=== PATIENT | male | born 1935 | race Caucasian/White ===

== ENCOUNTER → 2016-12-17 | Outpatient (CLI) | payer OTHER ==
[~2016-12-17] MED LIST: ACTOS 45 MG45 M1 PO; ALPHAGAN P10 ML OP; ASA5UEC PO; B12INJ IM; CARDURA8 MG PO; CELEXA20 MG PO; COMBIGAN EYE DR10 ML; COMBIGAN EYE DR10 ML PO; FLOMAX PO; GEMFIBROZIL 60600 MG PO; GLUCOTROL10 MG PO; LEVEMIR SUBQ; LIPITOR40 MG PO; LUMIGAN2.5 M1 OP; METFORMIN 500500 MG PO; METFORMIN HCL500 MG PO; NOVOLOG100 UNIT/1 SUBQ; PEG3350510 GM PO; TIMOLOL MA0.5 %/5 M2; TYLENOL325 MG PO; VESICARE10 M1 PO; XALATAN2.5 ML OP; [UNRECOGNIZED DRUG - OTHER]
== END ==
LOC: ULTRA 14:16
DX: I65.21 Occlusion and stenosis of right carotid artery (principal)

== ENCOUNTER → 2019-10-31 | Outpatient (CLI) | payer OTHER | LOC: SJCVC 14:08 | PROVIDERS: ATTEND Internal Medicine | DX: I44.0 Atrioventricular block, first degree (principal); I45.10 Unspecified right bundle-branch block; R94.31 Abnormal electrocardiogram [ECG] [EKG]; I48.0 Paroxysmal atrial fibrillation; E78.5 Hyperlipidemia, unspecified; I95.1 Orthostatic hypotension; R53.1 Weakness; Z79.899 Other long term (current) drug therapy; Z79.84 Long term (current) use of oral hypoglycemic drugs; Z79.4 Long term (current) use of insulin; Z82.49 Family history of ischemic heart disease and other diseases of the circulatory system; Z87.891 Personal history of nicotine dependence ==

== ENCOUNTER → 2019-11-08 | Outpatient (CLI) | payer OTHER | LOC: SJCVCIMAG 08:55 | DX: I65.23 Occlusion and stenosis of bilateral carotid arteries (principal); I73.9 Peripheral vascular disease, unspecified; I48.0 Paroxysmal atrial fibrillation; Z87.891 Personal history of nicotine dependence ==

== ENCOUNTER → 2021-04-09 | Outpatient (CLI) | payer OTHER ==
[~2021-04-09] MED LIST changes: +ATORVASTATIN CA20 MG PO; +CELEXA 20 MG TA20 MG PO; +COLACE100 MG PO; +ELIQUIS5 MG PO; +FINASTERIDE5 MG PO; +FLOMAX0.4 MG PO; +METFORMIN HCL1000 MG PO; +MIRALAX17 GM PO; +PROAIR HFA8.5 GM INH; +TRESIBA FL100 UNIT/1 SUBQ; +VITAMIN D325 MC3 PO
[2021-04-09 13:29] LABS: URINE BILIRUBIN NEGATIVE (Negative); URINE BLOOD NEGATIVE (Negative); URINE CLARITY CLEAR; URINE COLOR YELLOW; URINE GLUCOSE-RANDOM* NEGATIVE (Negative); URINE KETONES TRACE (Negative); URINE LEUKOCYTES-REFLEX TRACE (Negative); URINE NITRITE-REFLEX NEGATIVE (Negative); URINE PROTEIN (DIPSTICK) NEGATIVE (Negative); URINE SPECIFIC GRAVITY >= 1.030 (1.005-1.035); URINE UROBILINOGEN 0.2 E.U./dl (0.2-1.0)
[2021-04-09 13:30] LABS: APTT 28.2 Seconds (24.5-32.8); INR 0.99; PROTIME 10.8 Seconds (10.5-12.1)
== END ==
LOC: PAC 10:44
PROVIDERS: ATTEND Surgery Vascular Surgery
DX: Z01.818 Encounter for other preprocedural examination (principal); E11.9 Type 2 diabetes mellitus without complications; I49.9 Cardiac arrhythmia, unspecified

== ENCOUNTER → 2021-04-12 | Outpatient (CLI) | payer OTHER ==
[~2021-04-12] MED LIST changes: -FLOMAX0.4 MG PO
== END ==
LOC: LAB 09:10
PROVIDERS: ATTEND Student in an Organized Health Care Education/Training Program
DX: Z01.812 Encounter for preprocedural laboratory examination (principal); Z20.822 Contact with and (suspected) exposure to COVID-19

== ENCOUNTER 2021-04-15 06:48 | Inpatient (IN) | payer OTHER ==
[2021-04-15] VITALS (26 sets, daily range): BP systolic 73–133; BP diastolic 28–72
[~2021-04-15] VITALS: Ht 177.8 cm; Wt 97.3 kg
--- NOTE | 2021-04-15 14:11 | NUR ---
PT CAME FROM PACU TO ICU AT 1300. PT ALERT AND ORIENTED X3 ON ARRIVAL TO ICU. PT WAS ACCOMPANIED BY HOME HEALTH MANAGER AND PACU TECH. PT WAS CONNECTED TO ICU MONITORS. PT WAS ON NEOSYNEPHRINE GTT AT 20 MCG/MIN AND NS AT 100ML/HR ON ARRIVAL. PT HAS RIGHT RADIAL ART LINE. PT HAS MCGREGOR CATHETER IN PLACE. CONTINUE TO MONITOR PATIENT AT THIS MOMENT.
--- NOTE | 2021-04-15 15:49 | O ---
[facility] [place] [address] OPERATIVE REPORT Name: WYATT LONDONO Room #: 245-P ADM IN M.R.#: [id number] Admission: 04/15/21 Attend Phys: Wyatt Johnson MD Discharge: Date of : 39 Report #: [id number] THIS REPORT FOR: cc: Reji Hawkins James A. DO Forman, John M. MD ~ DATE OF SERVICE: 04/15/2021 PREOPERATIVE DIAGNOSIS: Right carotid artery stenosis. POSTOPERATIVE DIAGNOSIS: Right carotid artery stenosis. OPERATION: Right carotid endarterectomy with patch closure. SURGEON: Wyatt Johnson MD ELEMENTARY SCHOOL REGISTRAR: KALINA Causey. ANESTHESIA: General. INDICATIONS: The patient is an 86-year-old with high-grade right carotid artery stenosis. Left side has been previously treated with carotid endarterectomy. The patient presents with transient ischemic attack. FINDINGS AND TECHNIQUE: After general anesthesia was established, an oblique right neck incision was made. Common facial vein was divided. Common internal and external carotid artery and the superior thyroid artery were identified and controlled. 10,000 units of heparin were given. Continuous electroencephalographic monitoring was performed during the operation. When the carotid vessels were occluded, no EEG changes were noted. The carotid arteriotomy was made. The endarterectomy was performed without creating a distal flap. Neointima was inspected and all loose debris was removed. Tacking sutures were placed at the transition zone. When the endarterectomy was deemed to be satisfactory, the arteriotomy was closed with running Prolene and a thin walled pericardial patch. The carotid vessels were backbled and the artery was irrigated with heparinized saline prior to closure. Flow was established first through the external and then the internal carotid artery. Protamine was given to reverse the heparin. Hemostasis was ascertained. When hemostasis was satisfactory, the wound was irrigated with antibiotic solution and a Colleen drain was brought out through the bottom pole of the [facility] [address] [place] [address] OPERATIVE REPORT Name: WYATT LONDONO GUILHERME Room #: 245-P [facility]#: [id number] Admission: 04/15/21 Attend Phys: Wyatt Johnson MD Discharge: Date of : 37 Report #: [id number] incision. The wound was closed in layers. The patient was taken to the recovery area in good condition where his neurologic progress was monitored. All counts were reported as correct. <ELECTRONICALLY SIGNED> By: Wyatt Johnson MD 04/15/21 1549 0953 1008 Wyatt Johnson MD /nt
[2021-04-16] VITALS (14 sets, daily range): BP systolic 86–112; BP diastolic 32–45
--- NOTE | 2021-04-16 02:17 | NUR ---
ASSUMED CARE OF PATIENT AT 1900. PATIENT REMAINS ON LAUREEN FOR BLOOD PRESSURE SUPPORT. INSULIN GTT TITRATED PER PROTOCOL, TURNED OFF WHEN BLOOD SUGAR LOW. PAIN MANAGED WELL WITH PO MEDS. PROGRESSING SLOWLY TOWARDS POC GOALS.
[2021-04-16 04:48] LABS: CALCIUM 7.7 mg/dL (8.5-10.1); CREATININE 1.2 mg/dL (0.7-1.3); POTASSIUM 4.1 mmol/L (3.5-5.1)
[2021-04-16 05:00] LABS: HEMATOCRIT 29.8 % (42.0-52.0); MCH 28.8 pg (26.0-34.0); MCHC 33.6 g/dL (28.0-37.0); MCV 85.8 fL (80.0-100.0); RBC 3.47 mil/uL (4.50-6.00); RDW 14.7 % (10.5-14.5)
--- NOTE | 2021-04-16 08:35 | NUR ---
0800-PT DELIGHTFUL. STATES I JUST FEEL ROTTEN. FINALLY SAID PAIN ~8/10. 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 DTR IS W AT PRESENT.--VW 0830- & THALIA IN.--VW
--- NOTE | 2021-04-16 12:35 | NUR ---
Case opened to follow for dc planning. Pt remains in ICU pod#1 s/p CEA with low hr/low blood pressure. Pt resting this morning during rounds and pt's is on her way here to visit. Cm completed assessment with pt's dtr Carlotta via phone. She indicates that the pt and spouse live together in a single story home. They have 2 steps into the home thru the garage. The pt uses a rwalker at home and has had some falls recently. He does have HH nursing and therapy services prior to admission. Pt's dtr is uncertain of which agency it is but possibley [facility] liason checking to see if he is active with them. The pt's does the house keeping and IADL's in the home but is struggling with a knee injury that needs surgery. Pt's dtr is available to help with errands and shopping as needed and they do have a 22yr old grand son living in the home for emergencies. Staff aware that pt and family are struggling with grief and loss of their son who one year ago today unexpectedly. PT eval is pending. Dc plan at this time is to resume HH. Will follow along.
[2021-04-17] VITALS (10 sets, daily range): BP systolic 99–140; BP diastolic 40–76
--- NOTE | 2021-04-17 03:52 | NUR ---
Pt has attempted to pull out RAC and right radial a-line x3 and constantly picking at surgical dressing, macdonald, and monitor wires. Unable to redirect pt. Karthikeyan Ware NP notified and bilateral soft wrist restraints applied for pt safety. Pt remains oriented to self only. Pupils GRACIELA, 4, brisk. Monitor Pt moves all extremities equally. Monitor SR with BBB.
[2021-04-17 05:44] LABS: ALBUMIN 2.6 g/dL (3.4-5.0); CALCIUM 7.9 mg/dL (8.5-10.1); CREATININE 0.8 mg/dL (0.7-1.3); PHOSPHORUS 2.6 mg/dL (2.5-4.9); POTASSIUM 4.2 mmol/L (3.5-5.1)
--- NOTE | 2021-04-17 06:46 | NUR ---
Slow progress toward goals. Pt remains extremely confused and will not reorient. Pt placed in soft wrist restraints bilaterally to protect a-line, IVs and macdonald. Neosynephrine gtt off at 0400, SBP remains > 100. Urine output was 2450 cc this shift.
--- NOTE | 2021-04-17 07:13 | EKG ---
[address] [place] [address] ELECTROCARDIOGRAM REPORT Name: WYATT LONDONO Room #: 245-P ADM IN M.R.#: [id number] Admission: 04/15/21 Attend Phys: Wyatt Johnson MD Discharge: Date of : 37 Report #: [id number] [facility] Test Date: 2021-04-16 Test Time: 15:24:55 Pat Name: WYATT LONDONO Department: Room: 245 P Gender: M Manager Of It: FSCHWALBE : 1935 Requested By: Gloria Stewart Order Number: [id number] MD: Tushar Manzano Measurements Intervals Pierre Part Rate: 45 P: 112 MD: 226 QRS: -84 QRSD: 168 T: -35 QT: 495 QTc: 429 Interpretive Statements Sinus bradycardia Borderline prolonged MD interval Right bundle branch block Compared to ECG 03/30/2014 10:05:36 Sinus rhythm no longer present Left-axis deviation no longer present Myocardial infarct finding no longer present Electronically Signed On 04-17-2021 7:13:40 CDT by Tushar Manzano [email or web address] <ELECTRONICALLY SIGNED> By: Tushar Manzano MD, FAC 04/17/21 0713 1524 1524 Tushar Manzano MD, [facility] /EPI
--- NOTE | 2021-04-17 08:09 | NUR ---
PT IS CONFUSED BELIEVING HE IS ON HIS WAY TO BO[place] ON [place]. PT IS IMPULSIVE BUT ALERT AND AWAKE. NEOSYNEPHRINE REMAINS OFF; HIS RIGHT A-LINE HAS READS 126/57. THE BP CUFF ON HIS LEFT ARM COORELATES READING 126/56. PT IS SLOWLY PROGRESSING TOWARD THE POC EVIDENCED BY CONFUSION. THE PT IS ON ROOM AIR SATTING 98%, W/ REGULAR RR (18), AND HR 60-70. THE RHYTHM IS SR W/ BBB AND INTERMITTENT 1 DEG. THIS RN WILL COMMUNICATE WITH DR. BHATT TO REMOVE THE A-LINE.
[2021-04-17 08:38] LABS: HEMATOCRIT 32.8 % (42.0-52.0); HEMOGLOBIN 10.7 gm/dL (14.0-18.0); MCH 28.1 pg (26.0-34.0); MCHC 32.6 g/dL (28.0-37.0); MCV 86.3 fL (80.0-100.0); RBC 3.8 mil/uL (4.50-6.00); WBC 10.1 thou/uL (4.0-11.0)
--- NOTE | 2021-04-17 14:22 | NUR ---
THIS PT REMAINS CONFUSED SUCH IS RESTRAINED. HE ATTEMPTS TO LEAVE THE HOSPITAL WHILE CONTINUOUSLY REACHING FOR HIS DEVICES. HIS IS AT THE BEDSIDE BUT HE ASKS, " WILL YOU MOVE THIS BOARD FROM MY BACK?" HE SHAKES THE BED RAIL BECAUSE HE DOES NOT WANT TO "LAY ON IT." THE SUSANA IS REMOVED; HIS SBP REMAINS ABOVE 10O THROUGHOUT THIS DAY. AND, THE MAP > 65 TOO. AN MRI IS ORDERED; HOWEVER; IT WOULD NOT BE SAFE AT THIS TIME.
--- NOTE | 2021-04-17 16:19 | NUR ---
MRI IS CANCELLED FOR THIS PT; HE HAS AN IMPLANTED MEDICAL NURSE ON THE LEFT SIDE OF THE HEART. HOSPITALIST IS AWARE, ORDERS TO CANCEL THE MRI IS RECEIVED.
[2021-04-18] VITALS (9 sets, daily range): BP systolic 86–149; BP diastolic 42–78
--- NOTE | 2021-04-18 01:05 | NUR ---
Pt voided for first time since macdonald removal at 174; pt missed urinal but appeared to void adequate amount.
--- NOTE | 2021-04-18 07:09 | NUR ---
Slowly progressing toward goals. Pt has slept well tonight; confusion much improved. Pt generally oriented to self, place and year now. Pt still very weak, needs max assist for toileting. Can shift weight in bed but requires assist for full turns. Skin remains intact, right neck incision NICHOLE dressing C/D/I. Pt has periods of decreased O2 sat when sleeping. O2 placed for HS to keep sat > 92%. Appears to be voiding without difficulty.
--- NOTE | 2021-04-18 09:55 | 2DMMODE ---
[facility] [place] [address] 2 D/M-MODE ECHOCARDIOGRAM Name: WYATT LONDONO Room #: 245-P ADM IN M.R.#: [id number] Admission: 04/15/21 Attend Phys: Wyatt Johnson MD Discharge: Date of : 39 Report #: [id number] THIS REPORT FOR: cc: Reji Hawkins James A. DO Park, Jin S. MD ~ APPROVED REPORT Study performed: 04/18/2021 08:16:17 EXAM: Comprehensive 2D, Doppler, and color-flow Echocardiogram Patient Location: ICU Room #: 245 Status: routine BSA: 2.15 HR: 44 bpm BP: 132/53 mmHg Rhythm: Sinus ophelia Other Information Study Quality: Adequate Indications Hypotensive post of endarterectomy. Elevated troponin. Echo Enhancing Agent Indication: Endocardial border delineation Agent(s) / Amount(s) Used: Optison 5 cc 2D Dimensions RVDd: 39.68 mm IVSd: 9.38 (7-11mm) LVOT Diam: 21.01 (18-24mm) LVDd: 56.47 mm PWd: 10.01 (7-11mm) Ascending Ao: 39.28 (22-36mm) LVDs: 40.35 (25-40mm) Left Atrium: 36.35 (27-40mm) Aortic Root: 34.80 mm Volumes Left Atrial Volume (Systole) Single Plane 4CH: 33.76 mL Single Plane 2CH: 53.24 mL Aortic Valve AoV Peak Arnoldo.: 1.17 m/s [facility] [address] [place] [address] 2 D/M-MODE ECHOCARDIOGRAM Name: WYATT LONDONO Room #: 245-P ADM IN M.R.#: [id number] Admission: 04/15/21 Attend Phys: Wyatt Johnson MD Discharge: Date of : 37 Report #: [id number] AO Peak Gr.: 5.50 mmHg LVOT Max P.91 mmHg LVOT Max V: 0.69 m/s TAMIE Vmax: 2.04 cm2 Mitral Valve E/A Ratio: 1.3 MV Decel. Time: 153.21 ms MV E Max Arnoldo.: 1.00 m/s MV A Arnoldo.: 0.75 m/s MV PHT: 44.43 ms IVRT: 87.66 ms Pulmonary Valve PV Peak Arnoldo.: 0.70 m/s PV Peak Gr.: 1.96 mmHg Tricuspid Valve TR Peak Arnoldo.: 2.42 m/s RAP Estimate: 5.00 mmHg TR Peak Gr.: 24.00 mmHg PA Pressure: 29.00 mmHg Left Ventricle The left ventricle is normal size. Regional wall motion abnormalities are noted. There is normal left ventricular wall thickness. Left ventricular systolic function is moderately decreased. LVEF is 40%. Moderate diastolic dysfunction is present (pseudonormal filling). Right Ventricle The right ventricle is normal size. The right ventricular systolic function is normal. Atria The left atrium size is normal. The right atrium size is normal. Aortic Valve The aortic valve is normal in structure. Trace aortic regurgitation. There is no aortic valvular stenosis. Mitral Valve The mitral valve is normal in structure. Mild mitral regurgitation. Tricuspid Valve The tricuspid valve is normal in structure. Mild tricuspid regurgitation. Estimated PAP is 29mmHg. [facility] [place] [address] 2 D/M-MODE ECHOCARDIOGRAM Name: LONDONO,JOHN GUILHERME Room #: 245-P ADM IN M.R.#: [id number] Admission: 04/15/21 Attend Phys: Wyatt Johnson MD Discharge: Date of : 39 Report #: [id number] Pulmonic Valve The pulmonary valve is normal in structure. Trace pulmonic regurgitation. Great Vessels The aortic root is normal in size. The ascending aorta is mildly dilated (3.9cm). IVC is dilated and collapses <50% with inspiration. Pericardium There is no pericardial effusion. <Conclusion> The left ventricle is normal size. There is normal left ventricular wall thickness. Left ventricular systolic function is moderately decreased. Moderate diastolic dysfunction is present (pseudonormal filling). The right ventricle is normal size. The left atrium size is normal. Trace aortic regurgitation. Mild mitral regurgitation. Mild tricuspid regurgitation. Estimated PAP is 29mmHg. <ELECTRONICALLY SIGNED> By: Aram Castano MD 04/18/21953 3 3 Aram Castano MD /INF
--- NOTE | 2021-04-18 10:08 | PATH ---
[facility] [address] [place] [address] PATHOLOGY RPT PROCEDURE Name: WYATT BUTLER Room #: 245-P ADM IN M.R.#: [id number] Admission: 04/15/21 Date of : 39 Discharge: Report #: [id number] Path Case #: [id number] LCA Accession Number: [id number] . 01 Material submitted: . carotid body - RIGHT CAROTID PLAQUE. Modifiers: right . 01 Clinical history: . CAROTID ENDARTERECTOMY RIGHT CAROTID ARTERY STENOSIS . 02 Diagnosis: Right carotid plaque, endarterectomy: - Calcified atherosclerotic plaque material. - Vessel wall with myxoid changes. (IUV:facility service manager; 04/17/2021) MBR 04/17/2021 [facility] Local . 02 Electronically signed: . Jacqueline Simpson MD, Pathologist NPI- [id number] . 01 Gross description: . The specimen is received in formalin, labeled "Wyatt Butler, right carotid plaque". Received are several segments of yellow-santos, moderately calcified plaque measuring 2.8 x 1.5 x 0.9 cm in aggregate dimensions. The specimen is submitted representatively in cassette A1, following light decalcification. (CAA; 04/16/2021) QAC/QAC 04/16/2021 1142 Local . 02 Pathologist provided ICD-10: I65.21 . 02 CPT . 628996, [id number] Specimen Comment: A courtesy copy of this report has been sent to [phone], [phone] Specimen Comment: [id number] Specimen Comment: Report sent to / DR MORTENSEN Specimen Comment: A duplicate report has been generated due to demographic updates. Performed at: [address] [id number] MD Breezy Austin MD Phone: [phone] Performed at: [address] [id number] PATHOLOGY RPT PROCEDURE Name: WYATT BUTLER Room #: 245-P [facility] IN M.R.#: [id number] Admission: 04/15/21 Date of : 39 Discharge: Report #: [id number] Path Case #: [id number] [address] [id number] MD Jacqueline Simpson MD Phone: [phone]
--- NOTE | 2021-04-18 10:18 | NUR ---
Discussed during los with the hospitalist and unit rounds. O2 2l nasal cannula. Ct scan today. [facility] consult. Possible move out of the icu when bed becomes available. Will cont following as needed.
--- NOTE | 2021-04-18 10:59 | NUR ---
RECIEVED REPORT FROM NIGHT RN AT 0930, AFTER REPORT COMPLETE, NOTIFIED OF NEW ROOM ASSIGNEMENT OF 208 IN CCU. REPORT CALLED TO CCU RNDELMA. AM MEDICATIONS GIVEN AND TRANSFERED. BELONGINGS SENT WITH PATIENT. CONTACTED VIGNESH TO NOTIFY OF ROOM CHANGE. UPDATED ON PATIENT STATUS.
--- NOTE | 2021-04-18 16:32 | NUR ---
Case discussed with the care team, CTS, pt and family. CT for r/o cva. Pt too aggitated yesterday for MRI. [facility] consulted and they can accept for acute rehab stay. Pt and family agreeable to acute rehab here vs tx to [facility]. [facility] pineda has submitted for insurance auth. Pt now on CCU. Will follow.
--- NOTE | 2021-04-18 17:04 | NUR ---
AUTHORIZATION FOR ACUTE INPATIENT REHABILITATION WAS REQUESTED TODAY 04/18/21 FOR ANTICIPATED ADMISSION ON 04/19/21. CLINICALS FAXED TO [phone]. REF #[id number].
--- NOTE | 2021-04-19 02:48 | NUR ---
PT CARE ASSUMED WITH PT IN BED RESTING.PT IS A/OX4.PT IS MAX ASSIST.ACCUCHECK ACHS.PT C/O HEADACHE AND TYLENOL GIVEN.DRESSING ON RT NECK AREA I/C/D WITH NICHOLE.WILL CONTINUE TO MONITOR PER POC
[2021-04-19 04:38] VITALS: BP 117/54
[2021-04-19 05:28] LABS: ALBUMIN 2.5 g/dL (3.4-5.0); CALCIUM 8.2 mg/dL (8.5-10.1); PHOSPHORUS 3.6 mg/dL (2.5-4.9)
[2021-04-19 07:00] VITALS: BP 103/56
--- NOTE | 2021-04-19 12:22 | NUR ---
[facility] acute rehab has a bed for the pt today and can accept if ins auth rec'd. Case discussed with the care team.
--- NOTE | 2021-04-19 14:39 | NUR ---
Assumed care of pt this AM. Pt A&O x4, on RA. Denies any chest pain. NICHOLE dressing in place to rt neck. Pt c/o sore throat, given PRN losanges. Bradycardia w/ 1AVB, BBB, & PAC on the monitor. Pt up w/ max assist. Urinal at bedside. Possible discharge to [facility] today, pending approval. Will continue to assess pt needs.
[2021-04-19] MEDS ORDERED: FLOMAX0.4 MG PO (16:53)
[2021-04-19 17:00] VITALS: BP 137/66
== END 2021-04-19 20:07 | DRG 37 ==
LOC: OR → ICU 06:48 → ADMC 06:48 → PRE 08:56 → OR 10:44 → ICU 12:50 → OR 15:14 → EDSTATUS 17:03 → 2N 04-18 10:31
PROVIDERS: Hospitalist; Nurse Practitioner Family; Physician Assistant; ADMIT Surgery Vascular Surgery; ATTEND Surgery Vascular Surgery
PROC: 03CM0ZZ Extirpation of Matter from Right External Carotid Artery, Open Approach (ICD-10-PCS; principal; 2021-04-15)
PROC: 03CK0ZZ Extirpation of Matter from Right Internal Carotid Artery, Open Approach (ICD-10-PCS; principal; 2021-04-15)
PROC: 03UH07Z Supplement Right Common Carotid Artery with Autologous Tissue Substitute, Open Approach (ICD-10-PCS; principal; 2021-04-15)
PROC: 03CH0ZZ Extirpation of Matter from Right Common Carotid Artery, Open Approach (ICD-10-PCS; principal; 2021-04-15)
DX: I65.21 Occlusion and stenosis of right carotid artery (principal); E43 Unspecified severe protein-calorie malnutrition; R77.8 Other specified abnormalities of plasma proteins; Z20.822 Contact with and (suspected) exposure to COVID-19; I95.9 Hypotension, unspecified; R41.0 Disorientation, unspecified; N40.0 Benign prostatic hyperplasia without lower urinary tract symptoms; E11.9 Type 2 diabetes mellitus without complications; I48.91 Unspecified atrial fibrillation; Z79.01 Long term (current) use of anticoagulants; E78.5 Hyperlipidemia, unspecified; I10 Essential (primary) hypertension; E66.9 Obesity, unspecified; Z68.30 Body mass index [BMI] 30.0-30.9, adult; Z92.3 Personal history of irradiation; I95.89 Other hypotension
CPT/HCPCS: 10078; 10081; 10204; 47375; 48889; 50010; 50101; 50386; 50403; 50455; 51301; 52287; 54118; 56524; 56526; 56528; 56534; 57254; 58585; 58731; 62110; 62900; 65020; 70005

== ENCOUNTER 2021-04-19 17:18 | Inpatient (IN) | payer OTHER ==
[~2021-04-19] VITALS: Ht 175.3 cm; Wt 91.8 kg
[~2021-04-19 17:18] MED LIST changes: +FLOMAX0.4 MG PO
[2021-04-19 20:00] VITALS: BP 128/61
--- NOTE | 2021-04-19 22:40 | NUR ---
PT ARRIVED TO UNIT APPROX 1999 VIA W/C FROM [facility]. PT ALERT AND ORIENTED X4, PLEASANT AND COOPERATIVE. DRESSING TO NECK C/D/I. PT SOMEWHAT FORGETFUL. URINAL AT BEDSIDE. DCD SALINE LOCK TO LEFT AC DRAINAGE AT SITE. PT TOOK HS MED WITH WATER TOLERATING WELL. PT DENIES PAIN. BED ALARM ON AND CALL LIGHT IN REACH. WILL CONTINUE TO MONITOR.
[2021-04-20 04:39] LABS: CALCIUM 8.3 mg/dL (8.5-10.1); CREATININE 0.9 mg/dL (0.7-1.3); HEMATOCRIT 33.4 % (42.0-52.0); HEMOGLOBIN 11.2 gm/dL (14.0-18.0); MCH 28.7 pg (26.0-34.0); MCHC 33.5 g/dL (28.0-37.0); MCV 85.8 fL (80.0-100.0); POTASSIUM 3.9 mmol/L (3.5-5.1); RBC 3.9 mil/uL (4.50-6.00); WBC 6.9 thou/uL (4.0-11.0)
[2021-04-20 05:21] LABS: FOLIC ACID 5.4 ng/mL (8.6-58.9)
--- NOTE | 2021-04-20 07:53 | NUR ---
ASSUMED CARE AT 0700. PATIENT IS ALERT AND ORIENTED X4. PATIENT MYERS'S , CYBER SECURITY MANAGER ARE EQUAL. LUNGS ARE CLEAR AND DEMINISHED. ABD IS SOFT WITH BSX4. PATIENT HAS NICHOLE ON HIS RIGHT NECK. PATIENT HAS LOOP RECORDER ON LEFT CHEEST. PATIENT VOIDS SKYLER COLORED URINE PER URINAL. FALL AND SAFETY PROTOCOLS IN PLACE. DENIES PAIN AT THIS TIME. CONTINUES TO PROGRESS SLOWLY TOWARDS D/C GOALS. PT/OT/ST EVALS TO BE DONE TODAY. WILL CONTINUE TO MONITER.
[2021-04-20 08:00] VITALS: BP 141/64
--- NOTE | 2021-04-20 10:06 | NUR ---
DR. MENDIETA HERE TO SEE PATIENT. PATIENT HAS HEMATOMA AT LEFT CARROTID SITE. PATIENT CHANGED TO NPO AND IS TO HAVE ELOQUIS HELD FOR NOW. DR. BHATT TO SEE PATIENT TODAY. WILL CONTINUE TO MONITER.
[2021-04-20 18:58] VITALS: BP 117/61
--- NOTE | 2021-04-21 02:36 | NUR ---
Assumed pt care at 1900. A/OX4 with forgetfulness noted but able to make needs known. C/o pain to neck/head,medicated with Tylenol with relief reported. Dsg on right side of neck intact with dried blood no fresh blood noted,NICHOLE dsg patent. Pt does have some episodes of urinary incontinence at night otherwise voiding per urinal as needed. Fall precautions in place,calls approp for help.Will continue to monitor pt.
[2021-04-21 10:20] VITALS: BP 133/62
--- NOTE | 2021-04-21 14:17 | NUR ---
Assumed care for Pt at shift change, PT A/O x 4, pleasant, slept comfortably, no c/o pain, VSS, Gluc covered and other labs reveiewed and no new concerns, safety precaution maintained, meds given as scheduled, afebrile, worked with PT, uses the urinal in bed, POC to be cont'd.
[2021-04-21 20:30] VITALS: BP 136/64
[2021-04-22 01:06] LABS: GLYCOHEMOGLOBIN (HGB A1C) 8.4 % (4.8-5.6)
--- NOTE | 2021-04-22 02:33 | NUR ---
ASSUMED CARE OF PT AT 1915 ON 04/21/21. PT IS A&OX4 WITH REPORTED FORGETFULNESS AT TIMES. IS STABLE. IS ON ROOM AIR. REPORTS A CARDONA THAT IS BEING MANAGED WITH ORAL PAIN MEDS & OTHER THERAPUETIC TECHNIQUES. DENIES PAIN IN R NECK. NICHOLE DRSG INTACT WITH SMALL AMOUNT OF DRY, BROWN DRAINAGE. IS UP WITH 1 ASSIST, GB, WALKER TO BSC. FALL PRECAUTIONS & HOURLY ROUUNDING CONTINUED THIS SHIFT. IS ABLE TO TURN SELF IN BED. NEEDS ASSISTANCE BEING BOOSTED IN BED. LABS & VITALS REVIEWED. PT IS CURRENTLY ASLEEP. CALL LIGHT WITHIN REACH. WILL CONTINUE TO MONITOR.
[2021-04-22 08:04] VITALS: BP 142/75
[2021-04-22] MEDS ORDERED: METFORMIN HCL1000 MG PO (08:27)
--- NOTE | 2021-04-22 11:50 | NUR ---
ASSUMED CARE FOR PT AT SHIFT CHANGE, NO OVER NIGHT ISSUE REPORTED, LOOKS COMFORTABLE, ALL SAFETY PRECAUTIONS MAINTAINED, GREAT MOOD, NO C/O PAIN, GLUC COVERED PER ISS, VSS, ASSESSMENT DONE AT BEDSIDE AND CHARTED; ALL MEDS GIVEN PER ORDER, pT TOOK MEDS WHOLE WITH WATER, LABS REVIEWED NO NEW CONCERNS, WORKED W/ PT OT TODAY, USED URINALS BUT INCONTINENT SOMETIMES, NO BM IN THE MORNING HRS. WILL CONT' MONITOR FOR CHANGE
--- NOTE | 2021-04-22 16:25 | NUR ---
chart review. cm visited with [facility], daly to cm, and dcp. [place], pleasant and able to make his needs know. Prior to hospital. Live home with , 2 steps to enter home, the all main level. Has rollator walker. [facility] in the past and would use them again. assist in the home as well. grandson lives with them. Daughter is able to run errands when needed. Will cont following as needed for dc needs.
[2021-04-22 19:38] VITALS: BP 119/63
--- NOTE | 2021-04-23 01:07 | NUR ---
assumed care approx 1900 evening 04/22. pt lying in bed at change of shift resting and watching [employer] game on tv. pt pleasant and cooperative. pt incontinent of urine and assisted with complete bed change at hs. pt with no hs meds however did given Tylenol po as requested. pt appears to be sleeping soundly at present. bed alarm on and call light in reach. will continue to monitor.
[2021-04-23 07:40] VITALS: BP 153/76
[2021-04-23 08:00] VITALS: BP 142/98
--- NOTE | 2021-04-23 13:02 | NUR ---
team meeting, recommendation: bp up and down. refused to eat yesterday and today per bedside nurse. new consult for dietitian. dc 04/30 home with [facility] ( pt, ot, nursing, sw). Fww rt possible will no longer be safe with his rollator. Will cont following as needed
--- NOTE | 2021-04-23 14:26 | NUR ---
ASSUMED PT CARE AT SHIFT CHANGE, A/O, ROOM AIR, LOOKED FATIGUED BUT COMFORTBALE AND SAFE, ALL SAFETY PRECAUTIONS MAINTAINED, BEDSIDE ASSESSMENT DONE AND CHARTED , LABS REVIEWED NO NEW CONCERNS , pT TAKES MEDS WHOLE WITH WATER, PT WAS ABLE TO SIT ON THE CHAIR FOR 2 HOURS , SBA, WITH 1, GB, AND FWW; , REFUSED LUNCH, GLUC CONTROLLED, VSS, WORKED SUCCESSFULLY WITH PT/OT, ALL MEDS GIVEN PER ORDER, afebrile , will cont monitoring for change. POC TO BE CONT'D.
[2021-04-23 19:19] VITALS: BP 119/58
--- NOTE | 2021-04-24 02:09 | NUR ---
ASSUMED CARE APPROX 1900 EVENING 04/23. PT SITTING UP IN ROOM WATCHING TV AND RESTING. PT ALERT AND ORIENTED X4, PLEASANT AND COOPERATIVE. PT SOMEWHAT FORGETFUL. PT STATED HE HAD A GOOD DAY WITH THERAPY. PT TOOK HS MEDS WITH WATER TOLERATING WELL. PT APPEARS TO BE SLEEPING SOUNDLY. BED ALARM ON AND CALL LIGHT IN REACH. WILL CONTINUE TO MONITOR.
[2021-04-24 08:00] VITALS: BP 141/83
--- NOTE | 2021-04-24 10:42 | NUR ---
ASSUMED CARE AT 0700. PATIENT IS ALERT AND ORIENTED X4, WITH SOME FORGETFULNESS. PATIENT MYERS'S, BREAD MOLDER ARE EQUAL. LUNGS ARE CLEAR AND DEMINISHED. ABD IS SOFT WITH BSX4. LEFT CARROTID INCISION SITE CLEAN AND DRY. PATIENT USES URINAL TO VOID SKYLER COLORED URINE. FALL AND SAFETY PROTOCOLS IN PLACE. DENIES PAIN AT THIS TIME. PATIENT IS UP WITH GAIT BELT AND WALKER WITH ASSIST OF 1 STAFF. CONTINUES TO PROGRESS SLOWLY TOWARDS D/C GOALS. WILL CONTINUE TO MONITER.
[2021-04-24 20:06] VITALS: BP 133/66
--- NOTE | 2021-04-25 04:30 | NUR ---
ASSUMED CARE AT 1930 OF 04/24. PATIENT IS A&OX4, CAN BE FORGETFUL AT TIMES. DENIES PAIN OR SHORTNESS OF BREATH. MINIMAL ASSIST OF 1 WITH TRANSFERS AND AMBULATION, USING GB AND WALKER. NO IMPULSIVITY NOTED DURING SHIFT SO FAR. ABLE TO MAKE NEEDS KNOWN. URINAL PLACED AT BEDSIDE, FALL PRECAUTIONS IN PLACE. CALL LIGHT WITHIN REACH, WILL CONTINUE TO MONITOR.
[2021-04-25 08:00] VITALS: BP 141/83
--- NOTE | 2021-04-25 10:00 | NUR ---
PT ATTENDED AM THERAPIES AND IS PLEASANT AND COOPERATIVE. NO IMPULSIVITY NOTED AT PRESENT, BUT REPORT RECEIVED EARLIER THAT HE HAS A HX OF IMPULSIVITY. ALARMS ARE ON. PT VERBALIZED DESIRE TO DC HOME EARLIER THAN 04/30, BUT WHEN NM DISCUSSED PT'S 'S ABILITY TO ASSIST, PT AGREED THAT HE NEEDED TO BE AT HIS VERY BEST AT DC, AND CONTINUED STAY WOULD HELP WITH THIS. PT DENIES PAIN AT PRESENT. HE IS VERY [place], AND UNDERSTANDS ABOUT 50% WITHOUT REPEATS REQUIRED.
[2021-04-25 18:04] VITALS: BP 139/81
[2021-04-25 19:25] VITALS: BP 110/63
--- NOTE | 2021-04-26 00:16 | NUR ---
PT ALERT AND ORIENTED X 4. RIGHT NECK INCISION C/D/I. PT TAKES MEDS WITH WATER WITHOUT DIFFICULTY. PT DENIES PAIN OR DISCOMFORT. BED ALARM ON FOR SAFETY. PT APPEARS TO BE SLEEPING ON HOURLY ROUNDS.
[2021-04-26 06:27] LABS: ABSOLUTE NEUTROPHILS 6.1 thou/uL (1.4-8.2); BASOPHILS 0.5 % (0.0-2.0); EOSINOPHILS 1.2 % (0.0-3.0); HEMATOCRIT 32.7 % (42.0-52.0); HEMOGLOBIN 11.1 gm/dL (14.0-18.0); LYMPHOCYTES 18.1 % (24.0-44.0); MCH 28.8 pg (26.0-34.0); MCHC 33.8 g/dL (28.0-37.0); MCV 85.2 fL (80.0-100.0); MONOCYTES 8.9 % (1.0-8.0); PLATELET COUNT 294 thou/uL (150-400); POLYS 71.3 % (36.0-66.0); RBC 3.84 mil/uL (4.50-6.00); RDW 14.4 % (10.5-14.5); WBC 8.6 thou/uL (4.0-11.0)
[2021-04-26 06:59] LABS: CALCIUM 8.5 mg/dL (8.5-10.1); CREATININE 1.1 mg/dL (0.7-1.3); POTASSIUM 4.6 mmol/L (3.5-5.1)
[2021-04-26 07:30] VITALS: BP 108/64
--- NOTE | 2021-04-26 08:53 | NUR ---
Cont therapy and work towards dc home with and [facility]. Will requirer fww at discharge. Will cont following as needed for dc needs.
[2021-04-26 19:20] VITALS: BP 142/73
--- NOTE | 2021-04-26 19:23 | NUR ---
PT WILLINGLY WORKED WITH [employer]. TOLERATING REGULAR DIET. WILL CONTINUE TO MONITOR
--- NOTE | 2021-04-27 01:15 | NUR ---
PT ASSESSMENT COMPLETED AND VSS. MEDS GIVEN ORDERED AND WELL TOLERATED. FALL PRECAUTIONS IN PLACE. ASST WITH REPOSITION FOR COMFORT. R NECK INCISION HEALING WELL AND OPEN TO AIR. PT DENIES NEEDS. SLEEPING WELL. WILL CONTINUE TO MONITOR FREQUENTLY.
[2021-04-27 08:00] VITALS: BP 135/59
--- NOTE | 2021-04-27 09:15 | NUR ---
PT LYINGIN BED RESTING. PT REFUSED BREAKFAST. PT STATED HE FEELS DEPRESSED. PT INCISION TO RT NECK IS HEALING WITH NO SIGNS OF INFECTION. PT DENIES ANY PAIN. PT STATED HE DOES HAVE ISSUES WITH CONSTIPATION, ABD IS ROUND AND SOFT. PT DID HAVE BM LAST NIGHT. PT STATED HE WOULD EAT IF HE HAD HIS TRY. GAVE PT SOME GRAMHN CRACKERS AND PEANUT BUTTER AND JELLY, YOGART, AND APPLESAUCE. GAVE PT FRESH COFFEE. PT DOESN'T HAVE THERAPY TILL LATER TODAY.
--- NOTE | 2021-04-27 15:57 | NUR ---
PT HAVING A GOOD AFTERNOON. PT HERE TO VISIT. PT EATING ON HARD CANDY DUE TO DRY MOUTH.
[2021-04-27 19:10] VITALS: BP 117/68
--- NOTE | 2021-04-27 23:52 | NUR ---
PT ASSESSMENT COMPLETED AND VSS. MEDS GIVEN ORDERED AND WELL TOLERATED. FALL PRECAUTIONS IN PLACE. ASST WITH REPOSITION FOR COMFORT. PT DENIES NEEDS. SLEEPING WELL. WILL CONTINUE TO MONITOR FREQUENTLY.
[2021-04-28 08:15] VITALS: BP 137/78
--- NOTE | 2021-04-28 09:30 | NUR ---
PT LYING IN BED THIS AM. PT DENIES ANY PAIN. PT TOOK MEDS WITH THIN WATER WITHOUT ANY ISSUES. PT USES URINAL TO VOID. PT BM YESTERDAY. ABD IS ROUND WITH BOWEL SOUNDS. PT IS CHEERFUL THIS AM. LUNGS CLEAR AND ON ROOM AIR.
--- NOTE | 2021-04-28 13:07 | NUR ---
PT REFUSED TO EAT LUNCH DUE TO JUST FINISHED WITH BREAKFAST. PT WAS UP WITH THERAPY AND WALKING AROUND UNIT WITH WALKER. PT IS TIRED AFTER AFTER WALKING.
[2021-04-28 19:23] VITALS: BP 122/62
--- NOTE | 2021-04-29 01:49 | NUR ---
ASSUMED CARE AT 1900, PT LAYING COMFORTABLY IN BED, REPORTS NO PAIN OR DISCOMFORT, LOOKING FORWARD TO GO HOME ON Thursday04/30/21, COMPLIANT TO TX, NO ADVERSE REACTION NOTED WILL CONTINUE TO MONITOR.
--- NOTE | 2021-04-29 07:09 | HC ---
[facility] [place] [address] CONSULTATION Name: WYATT LONDONO Room #: 511-P ADM IN M.R.#: [id number] Admission: 04/19/21 Attend Phys: Florian Gonzalez MD Discharge: Date of : 39 Report #: [id number] THIS REPORT FOR: cc: Reji Hawkins James A. DO Deutch, Neal B. PhD ~ DATE OF SERVICE: 04/21/2021 NEUROBEHAVIORAL STATUS EXAM ATTENDING PHYSICIAN: Florian Gonzalez M.D. PHOTOGRAPHIC PRINTER: Yordy Jackson, PhD CLINICAL PRESENTATION: The patient is an 86-year-old male admitted to the hospital on 04/15/2021 with the right carotid artery stenosis and a right carotid endarterectomy. Post surgery he was confused and disoriented, requiring restraints. Disorientation was felt due to narcotic medication and his behavior has been improving with decreased use of narcotics. His initial admission to the hospital was preceded by a fall at his home. His found him unconscious in their home. He reports having had a fall and is amnestic surrounding the fall. His assessment on admission to the rehabilitation unit is possible TIA versus clinical CVA with left hemiparesis, carotid artery stenosis, status post right carotid endarterectomy on 04/15, postoperative hypotension, resolving; type 2 diabetes mellitus, AFib, hyperlipidemia, BPH, obesity and a history of left arm melanoma, status post radiation. A complete description of his medical condition and history can be found in his medical record. Neuropsychological consultation was requested to provide assistance in the assessment of cognitive and emotional status and provide recommendations and services. Prior to this most recent admission, he reports having been living independently with his in their home. He states that he had discontinued driving about 2 years ago because of glaucoma. His was managing medications and bill payment. 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 He reports having had 2 children. His son last year from a heart attack. TECHNIQUES UTILIZED: Clinical interview, review of medical records, staff consultation and behavioral observation, mini mental status exam 2 standard version, clock drawing and verbal fluency assessment. EXAMINATION FINDINGS: The patient was alert and cooperative with the [facility] [address] [place] [address] CONSULTATION Name: WYATT LONDONO Room #: 511-P [facility] IN [facility].#: [id number] Admission: 04/19/21 Attend Phys: Florian Gonzalez MD Discharge: Date of : 39 Report #: [id number] assessment. There is no evidence of aphasia. His thoughts are logical and goal oriented. There is no evidence of thought disorder. He accurately described events surrounding his admission. The patient does not present with an aphasia. He also does not report suicidal ideation. His affect was sad as he described the loss of his son from a heart attack last year. He describes his symptoms to include sleep disturbance, decreased memory. He does not report anxiety or depression as well as changes in appetite or word finding. Performance on the MMSE 2 brief version is in the mild range of impairment with a raw score of 13/16. He was 3/3 for initial registration, 5/5 for orientation to time and place. He was 0/3 for immediate recall of 3 items after a brief time delay and distraction. Performance was in the moderate range of impairment on the MMSE 2 standard version with a raw score of 22/30, T score of 32 and percentile rank of 4. He was 1/5 for serial sevens, 2/2 for naming, 1/1 for repetition, 3/3 for auditory comprehension. He could read and follow a single command and write a sentence. He had difficulty with copying a simple geometric design. Clock drawing was within normal limits. Letter fluency was within normal limits with a raw score 21, T score of 50, and percentile rank of 50. Moderate deficits are suggested in category fluency with a T score of 36 and percentile rank of 8. Overall, total fluency was in the low average range with a T score of 42 and percentile rank of 21. Deficits are suggested in semantic fluency and can often be seen with impaired functioning within the medial temporal lobe. DIAGNOSTIC IMPRESSION: Neurocognitive disorder, extent to be determined, likely in the mild to moderate range. Neurocognitive disorder is likely multifactorial with a vascular contribution plus recovering concussion. RECOMMENDATIONS: The patient may benefit from a more thorough neuropsychological assessment upon discharge to clarify the severity of cognitive deficits. His has already been assisting him with instrumental activities of daily living, which will need to be continued. Thank you very much for allowing me to provide the consultation on this patient. <ELECTRONICALLY SIGNED> By: Yordy Jackson, PhD 04/29/21 [id number] Yordy Jackson, PhD /nt
--- NOTE | 2021-04-29 08:16 | NUR ---
PT LYING IN BED THIS AM. PT VOIDS PER URINAL AT BEDSIDE OR BATHROOM. PT STATED HE HAS A SLIGHT HEADACHE OF 4 ON 1-10 SCALE. PT ABLE TO TAKE MEDS WHOLE WITH WATER ONE AT A TIME. PT USES WALKER WHEN AMBULATING.
--- NOTE | 2021-04-29 08:34 | NUR ---
ADM TYLENOL 325MG 2 TABS PO FOR HEADACHE OF 4 ON 1-10 SCALE.
[2021-04-29 09:13] VITALS: BP 141/73
--- NOTE | 2021-04-29 09:38 | NUR ---
Nutrition: screen for LOS. No recent wt available. BMP reviewed. BG 115-168. Intake 75-100% most meals. Appears plan is for discharge tomorrow. Assess at low nutrition risk.
[2021-04-29 19:42] VITALS: BP 145/67
--- NOTE | 2021-04-30 00:03 | NUR ---
PT ASSESSMENT COMPLETED AND VSS. MEDS GIVEN ORDERED AND WELL TOLERATED. FALL PRECAUTIONS IN PLACE. UP TO THE BATHROOM WITH ASST/GAIT/WALKER. STEADY. PT EXCITED ABOUT GOING HOME TOMORROW. BG 140. SLEEPING WELL. WILL CONTINUE TO MONITOR FREQUENTLY.
[2021-04-30] MEDS ORDERED: VITAMIN B-12500 MCG PO (08:50)
[2021-04-30] MEDS ORDERED: FOLIC ACID1 MG PO (08:50)
[2021-04-30 09:58] VITALS: BP 134/72
[2021-04-30 11:10] VITALS: BP 134/72
--- NOTE | 2021-04-30 12:55 | NUR ---
Team meeting, recommendation: Cont. with dc home today, [facility]. No driving. Assist with meds and pills. No driving.
--- NOTE | 2021-04-30 13:34 | NUR ---
PATIENT IS A/Ox4. AT BEDSIDE. THIS NURSE WENT OVER DISCHARGE INSTRUCTIONS AND MEDICATIONS WITH PATIENT AND . THIS NURSE WENT OVER ALL FOLLOW UP APPOINTMENTS. EDUCATED ABOUT HOME HEALTH;[facility] WOULD BE REACHING OUT AND SETTING UP A TIME TO COME OUT. BOTH VERBALIZED FULL UNDERSTANDING AT THIS TIME. PATIENT LEFT AT 1300 VIA WC AND PERSONAL VEHICLE.
--- NOTE | 2021-05-03 10:47 | PLAN ---
[facility] [place] [address] REHAB UNIT PLAN OF CARE Name: WYATT LONDONO Room #: 511-P [facility] IN M.R.#: [id number] Admission: 04/19/21 Attend Phys: Florian Gonzalez MD Discharge: 04/30/21 Date of : 39 Report #: [id number] THIS REPORT FOR: cc: Reji Hawkins James A. DO Smithson, David G. MD ~ DATE OF SERVICE: 04/22/2021 PROGRESS NOTE/OVERALL PLAN OF CARE HISTORY OF PRESENT ILLNESS: The patient is seen in inpatient rehabilitation. He was in no distress. He is status post right carotid endarterectomy and his dressing is in place. He follows basic one-step commands. No focal calf swelling. He has been working in therapies with transfers at a min assist level, with gait 100 feet, mod assist with a front-wheeled walker. In occupational therapy, lower body dressing is mod assist with upper body dressing standby. He does have hyzi-da-[id number] comprehensive deficits with moderate cognitive deficits and moderate memory deficits. ASSESSMENT: An 86-year-old male with the following problem list: 1. Possible transient ischemic attack versus clinical cerebrovascular accident with left-sided weakness. 2. Carotid artery stenosis, status post right carotid endarterectomy, 04/15. 3. Postop hypotension, noted to be resolving. 4. Diabetes mellitus type 2. 5. Atrial fibrillation. 6. Hyperlipidemia. 7. Benign prostatic hypertrophy. 8. Obesity. 9. History of left arm melanoma, status post radiation. PLAN: The overall plan of care is based on the pre-admission screen and information garnered from therapy assessments. 1. Estimated length of stay is probably around 14 days, pending progress. 2. Medical prognosis is reasonably good. 3. Anticipated interventions includes the interdisciplinary acute inpatient rehabilitation program. 4. Anticipated functional outcomes would be for the patient to become modified independent with transfers, mobility and ADLs, as well as improvement in cognition and memory and comprehension so that he can return back to the home setting. 5. Discharge destination would be back home with his in their house. 6. Expected therapy by discipline includes PT, OT and speech one hour per day each 5 days a week throughout the duration of the acute inpatient rehabilitation stay. [place] [id number] REHAB UNIT PLAN OF CARE Name: WYATT LONDONO Room #: 511-P [facility] IN [facility].#: [id number] Admission: 04/19/21 Attend Phys: Florian Gonzalez MD Discharge: 04/30/21 Date of : 39 Report #: [id number] ADDENDUM: The patient's prognosis for significant practical improvement within a reasonable period of time appears good. Given the patient's complex medical condition and risk of further medical complication, rehabilitation services could not be safely provided at the lower level of care such as a correction facility. <ELECTRONICALLY SIGNED> By: Florian Gonzalez MD 05/03/21 [id number] Florian Gonzalez MD /paresh
== END 2021-04-30 14:26 | disposition home health service (06) | DRG 56 ==
PROVIDERS: Nurse Practitioner; Nurse Practitioner Family; ADMIT Physical Medicine & Rehabilitation; ATTEND Physical Medicine & Rehabilitation
DX: G81.94 Hemiplegia, unspecified affecting left nondominant side (principal); I63.9 Cerebral infarction, unspecified; G93.40 Encephalopathy, unspecified; G93.1 Anoxic brain damage, not elsewhere classified; R53.81 Other malaise; I65.21 Occlusion and stenosis of right carotid artery; E11.9 Type 2 diabetes mellitus without complications; I48.91 Unspecified atrial fibrillation; E78.5 Hyperlipidemia, unspecified; N40.0 Benign prostatic hyperplasia without lower urinary tract symptoms; E66.9 Obesity, unspecified; K59.00 Constipation, unspecified; E78.00 Pure hypercholesterolemia, unspecified; F41.9 Anxiety disorder, unspecified; R41.9 Unspecified symptoms and signs involving cognitive functions and awareness; F32.9 Major depressive disorder, single episode, unspecified; E53.8 Deficiency of other specified B group vitamins; I95.81 Postprocedural hypotension; Z68.29 Body mass index [BMI] 29.0-29.9, adult; Z79.4 Long term (current) use of insulin; Z98.42 Cataract extraction status, left eye; Z98.41 Cataract extraction status, right eye; Z79.899 Other long term (current) drug therapy
CPT/HCPCS: 10112